=== PATIENT | female | born 1955 | race Caucasian/White ===

== ENCOUNTER → 2017-10-13 | Outpatient (CLI) | payer OTHER ==
[~2017-10-13] MED LIST: AZIT250 PO; FEXPSEER PO; NABU500 PO; OXYACE5T PO; PROM25 PO
[2017-10-13 12:51] LABS: Source, Urine Catheter
[2017-10-13 14:18] LABS: Appearance, Urine Clear (Clear); Blood, Urine Neg (Neg); Color, Urine Yellow (P-Yellow); Glucose Qualitative, Urine Neg (Neg); Ketones, Urine 1+ (Neg); Leukocyte Esterase, Urine 1+ (Neg); Nitrite, Urine Neg (Neg); Protein, Urine 2+ (Neg); Specific Gravity, Urine 1.025 (1.003-1.022); Urobilinogen, Urine 1+ (Normal)
[2017-10-13 14:26] LABS: Bilirubin, Urine 1+ (Neg)
[2017-10-13 14:28] LABS: Red Blood Cells, Urine 0-2 /hpf (0-2)
[2017-10-13 14:29] LABS: Bacteria Few /hpf; Squamous Epithelial Cells Few /hpf (Few)
[2017-10-13 14:30] LABS: Mucus Light (0-Heavy)
== END | disposition home or self-care (01) ==
LOC: OLS 12:50
PROVIDERS: Obstetrics & Gynecology Gynecology
DX: N39.0 Urinary tract infection, site not specified (principal); N89.8 Other specified noninflammatory disorders of vagina
CPT/HCPCS: 81001; 87070; 87077; 87086; 87186; 87205

== ENCOUNTER → 2020-08-13 | Outpatient (CLI) | payer OTHER | LOC: LAB SHORT 13:05 | DX: L82.1 Other seborrheic keratosis (principal) | CPT/HCPCS: 88305 ==

== ENCOUNTER 2021-05-06 10:44 | Day surgery (SDC) | payer OTHER | END 2021-05-06 17:30 | disposition home or self-care (01) | LOC: ATC 10:44 | DX: U07.1 COVID-19 (principal); N18.2 Chronic kidney disease, stage 2 (mild); R03.0 Elevated blood-pressure reading, without diagnosis of hypertension; R53.83 Other fatigue; R06.02 Shortness of breath; D48.9 Neoplasm of uncertain behavior, unspecified; J30.2 Other seasonal allergic rhinitis; Z88.2 Allergy status to sulfonamides | CPT/HCPCS: 96365; Q0243 ==